=== PATIENT | female | born 1930 | race Caucasian/White ===

== ENCOUNTER 2017-11-02 14:15 | Emergency (ER) | payer OTHER ==
[~2017-11-02] VITALS: Ht 144.8 cm; Wt 41.4 kg
[2017-11-02] MEDS ORDERED: ULTRAM50 MG PO (18:30)
[2017-11-02 19:48] VITALS: BP 148/70
== END 2017-11-02 19:49 | disposition home or self-care (01) ==
LOC: EME 14:15
DX: S32.592A Other specified fracture of left pubis, initial encounter for closed fracture (principal); W01.0XXA Fall on same level from slipping, tripping and stumbling without subsequent striking against object, initial encounter; K21.9 Gastro-esophageal reflux disease without esophagitis; E78.5 Hyperlipidemia, unspecified; Z98.890 Other specified postprocedural states; Z91.030 Bee allergy status
CPT/HCPCS: 73502; 82140; 99281; 99285